=== PATIENT | female | born 1955 | race Caucasian/White ===

== ENCOUNTER 2022-03-19 15:31 | Outpatient (CLI) | payer BC | END 2022-03-19 15:32 | disposition home or self-care (01) | LOC: CSHLAB 15:31 | PROVIDERS: ATTEND Family Medicine | DX: U07.1 COVID-19 (principal) | CPT/HCPCS: U0003; U0005 ==

== ENCOUNTER 2022-03-29 15:27 | Outpatient (CLI) | payer MEDICARE, BC | END 2022-03-29 15:28 | disposition home or self-care (01) | LOC: CSHCP 15:27 | PROVIDERS: ATTEND Family Medicine | DX: R06.02 Shortness of breath (principal); R94.2 Abnormal results of pulmonary function studies | CPT/HCPCS: 94060; 94726; 94729; 94760 ==